=== PATIENT | female | born 1955 | race Caucasian/White ===

== ENCOUNTER → 2017-02-13 | Outpatient (CLI) | payer OTHER | LOC: RAD 00:39 | DX: Z12.31 Encounter for screening mammogram for malignant neoplasm of breast (principal) ==

== ENCOUNTER → 2017-05-07 | Outpatient (CLI) | payer OTHER ==
[~2017-05-07] VITALS: Ht 162.6 cm; Wt 58.1 kg
[~2017-05-07] MED LIST: ACCUNEB SO1.25 MG/1 INH; ASPIR 8181 MG PO; ESTRING1 EACH VAG; EYE PROMISE RESTORE PO; FISH OIL 1,001000 M2 PO; FLONASE 0.05%50 MCG NASAL; LISINOPRIL-HCT1 EACH PO; QVAR8.7 GM INH
--- NOTE | ~2017-05-07 | P ---
Formerly [facility] [place] [address] PROCEDURE REPORT Name: MADI CRAMER [id number] Admission: 05/07/17 Attend Phys: Rufino Gutierrez Discharge: Date of : 57 Report #: [id number] THIS REPORT FOR: //name// CC: Rufino Suárez MD DATE OF SERVICE: 05/07/2017 PROCEDURE PERFORMED: Colonoscopy. HISTORY OF PRESENT ILLNESS: The patient is a 61-year-old female with a history of colon polyp, tubular adenoma in 2011. She is here for a 5-year followup. She denies any symptoms. No family history of colon cancer. DESCRIPTION OF PROCEDURE: The risks and benefits of the procedure were explained to the patient, those risks including but not limited to bleeding, perforation, the risk of sedation. She understood these risks and gave informed consent. Sedation was given using propofol per anesthesia. Next, a digital rectal exam was initially performed, which was normal. Next, using a standard Fujinon colonoscope, the scope was placed in the patient's anus and advanced under direct vision to the cecum. The overall prep was excellent. The cecum and ileocecal valve were normal in appearance. Ascending, transverse, descending and sigmoid colon were all normal. The rectal mucosa was normal. On retroflexion, no abnormalities were noted. The scope was then withdrawn and the procedure terminated. The patient tolerated the procedure well. IMPRESSION: Normal colonoscopy. RECOMMENDATIONS: Repeat colonoscopy in 10 years. Thank you for allowing me to participate in her care. <ELECTRONICALLY SIGNED> By: Rufino Mason MD 05/10/17 [id number] Rufino Mason MD /nt
== END ==
LOC: GI 08:28
DX: Z09 Encounter for follow-up examination after completed treatment for conditions other than malignant neoplasm (principal); Z86.010 Personal history of colon polyps; J45.909 Unspecified asthma, uncomplicated; I10 Essential (primary) hypertension
CPT/HCPCS: 62110; 62900

== ENCOUNTER → 2018-02-19 | Outpatient (CLI) | payer OTHER | LOC: RAD 03:55 | DX: Z12.31 Encounter for screening mammogram for malignant neoplasm of breast (principal) ==

== ENCOUNTER → 2019-03-04 | Outpatient (CLI) | payer OTHER | LOC: RAD 14:01 | DX: Z12.31 Encounter for screening mammogram for malignant neoplasm of breast (principal) ==

== ENCOUNTER → 2020-03-16 | Outpatient (CLI) | payer OTHER | LOC: RAD 15:18 | PROVIDERS: ATTEND Family Medicine | DX: Z12.31 Encounter for screening mammogram for malignant neoplasm of breast (principal) ==

== ENCOUNTER → 2021-04-04 | Outpatient (CLI) | payer OTHER | LOC: BC 09:54 | PROVIDERS: ATTEND Family Medicine | DX: Z12.31 Encounter for screening mammogram for malignant neoplasm of breast (principal); N64.89 Other specified disorders of breast ==